=== PATIENT | male | born 1990 | race Caucasian/White ===

== ENCOUNTER 2020-04-12 08:56 | Inpatient (IN) | payer SELFPAY ==
[~2020-04-12] VITALS: Ht 177.8 cm; Wt 78.4 kg
[2020-04-12] VITALS (245 sets, daily range): BP systolic 107–130; BP diastolic 67–92; PULSE 68–92; TEMP 98.7–99.2; O2SAT 64–100
[~2020-04-12 08:56] MED LIST: NO HOME MEDICATIONS
[2020-04-12 09:22] LABS: HEMOGLOBIN 15.2 g/dl (13.5-18.0); MEAN CELL VOLUME 96 fl (80.0-100.0); MEAN CORPUSCULAR HEMOGLOBIN 33 pg (27.0-31.0); MEAN CORPUSCULAR HGB CONC 35 g/dl (33.0-37.0); MEAN PLATELET VOLUME 9.4 fl (7.4-10.4); PLATELET COUNT 215 K/mm3 (130-400); RED BLOOD COUNT 4.57 M/mm3 (4.20-5.60); REDCELL DISTRIBUTION WIDTH-CV 13.5 % (11.5-14.5)
[2020-04-12 09:33] LABS: ALBUMIN 4.9 gm/dL (3.5-5.0); ALKALINE PHOSPHATASE 78 U/L (50-136); ANION GAP 23 mmol/L (7-16); AST,SGOT 175 U/L (15-37); BILIRUBIN,TOTAL 1.6 mg/dL (0.0-1.0); BLOOD UREA NITROGEN 7 mg/dL (9-20); CARBON DIOXIDE 16 mmol/L (22-30); CHLORIDE 95 mmol/L (98-107); GLUCOSE 214 mg/dL (74-106); MAGNESIUM 1.7 mg/dL (1.6-2.3); POTASSIUM 3.5 mmol/L (3.4-5.0); SODIUM 133 mmol/L (137-145); TOTAL PROTEIN 8.1 gm/dL (6.4-8.2)
[2020-04-12 09:36] LABS: ALCOHOL(ethanol),MEDICAL < 10 mg/dL
[2020-04-12 09:39] LABS: ALANINE AMINOTRANSFERASE 69 U/L (4-49)
[2020-04-12 09:49] LABS: PROLACTIN 82.1 ng/mL (3.7-17.9)
[2020-04-12 09:53] LABS: BAND 3 % (0-10); EOSINOPHIL 1 % (0-4); NEUTROPHILS 66 % (42.0-75.2); PLATELET ESTIMATE NORMAL (NORMAL)
[2020-04-12 09:55] LABS: LYMPHOCYTE 25 % (20.0-51.0)
[2020-04-12 09:56] LABS: STOMATOCYTE 1+
[2020-04-12 10:36] LABS: COLLECTION METHOD CLEAN CATCH
[2020-04-12 10:46] LABS: MUCOUS Present /lpf; PH 6 (5-8); SQUAMOUS EPITHELIAL 0-2 /hpf; URINE APPEARANCE Hazy; URINE BACTERIA None Seen /hpf; URINE BILIRUBIN Negative (NEGATIVE); URINE BLOOD Negative (NEGATIVE); URINE COLOR Amber; URINE GLUCOSE Negative (NEGATIVE); URINE KETONE Trace (NEGATIVE); URINE LEUKOCYTE ESTERASE Negative (NEGATIVE); URINE NITRATE Negative (NEGATIVE); URINE PROTEIN(semi-quant) 2+ (NEGATIVE); URINE UROBILINOGEN Negative (NEGATIVE)
[2020-04-12 10:51] LABS: TRICYCLIC ANTIDEPRESS URINE NEGATIVE
[2020-04-13] VITALS (16 sets, daily range): BP systolic 109–134; BP diastolic 65–95; PULSE 61–100; TEMP 97.3–98.8
[2020-04-13 06:15] LABS: BASO # 0.1 (0.0-0.2); BASO % 0.7 % (0.0-2.0); EOS # 0.1 (0.0-0.7); EOS % 2.1 % (0-4.0); GRAN # 4.8 (1.4-6.5); GRAN % 72.6 % (42.2-75.2); HEMATOCRIT 38.5 % (42.0-52.0); LYMPH # 1.2 (1.2-3.4); LYMPH % 17.2 % (20.0-51.0); MEAN CELL VOLUME 98 fl (80.0-100.0); MEAN CORPUSCULAR HEMOGLOBIN 34 pg (27.0-31.0); MEAN CORPUSCULAR HGB CONC 34 g/dl (33.0-37.0); MEAN PLATELET VOLUME 9.8 fl (7.4-10.4); MONO # 0.5 (0.1-0.6); PLATELET COUNT 131 K/mm3 (130-400); RED BLOOD COUNT 3.94 M/mm3 (4.20-5.60); REDCELL DISTRIBUTION WIDTH-CV 13.5 % (11.5-14.5)
[2020-04-13 06:20] LABS: HEMOGLOBIN 13.2 g/dl (13.5-18.0)
[2020-04-13 06:27] LABS: ALBUMIN 4.1 gm/dL (3.5-5.0); BILIRUBIN,TOTAL 1.3 mg/dL (0.0-1.0); CALCIUM 8.8 mg/dL (8.4-10.2); CREATININE, serum 0.59 (0.66-1.25); MAGNESIUM 1.8 mg/dL (1.6-2.3); POTASSIUM 3.2 mmol/L (3.4-5.0); TOTAL PROTEIN 6.9 gm/dL (6.4-8.2)
[2020-04-14] VITALS (7 sets, daily range): BP systolic 125–135; BP diastolic 86–101; PULSE 62–86; TEMP 98.2–99.6
[2020-04-14 05:43] LABS: BASO % 0.6 % (0.0-2.0); EOS # 0.1 (0.0-0.7); GRAN % 73.4 % (42.2-75.2); HEMOGLOBIN 14.3 g/dl (13.5-18.0); LYMPH # 1.1 (1.2-3.4); LYMPH % 16.5 % (20.0-51.0); MEAN CELL VOLUME 97 fl (80.0-100.0); MEAN CORPUSCULAR HEMOGLOBIN 34 pg (27.0-31.0); MEAN CORPUSCULAR HGB CONC 35 g/dl (33.0-37.0); MEAN PLATELET VOLUME 10.1 fl (7.4-10.4); MONO # 0.5 (0.1-0.6); MONO % 6.9 % (1.7-9.3); PLATELET COUNT 123 K/mm3 (130-400); RED BLOOD COUNT 4.24 M/mm3 (4.20-5.60); REDCELL DISTRIBUTION WIDTH-CV 13.3 % (11.5-14.5)
[2020-04-14 05:52] LABS: ALBUMIN 4.3 gm/dL (3.5-5.0); BILIRUBIN,TOTAL 0.7 mg/dL (0.0-1.0); CALCIUM 9.1 mg/dL (8.4-10.2); CREATININE, serum 0.73 (0.66-1.25); MAGNESIUM 1.8 mg/dL (1.6-2.3); POTASSIUM 3.8 mmol/L (3.4-5.0); TOTAL PROTEIN 7.4 gm/dL (6.4-8.2)
[2020-04-14] MEDS ORDERED: NATURE'S BLEND100 M2 PO (11:32)
[2020-04-14] MEDS ORDERED: FOLIC ACID 11 MG/TA1 PO (11:32)
[2020-04-14] MEDS ORDERED: NICODERM C14 MG/PATC TD (11:32)
[2020-04-14] MEDS ORDERED: VALIUM 10MG10 MG/TAB PO (11:34)
== END 2020-04-14 11:45 | disposition left against medical advice (07) | DRG 894 ==
LOC: COL.ER 08:56 → IMCU 12:08 → ICU 13:43 → IMCU 04-14 11:45
PROVIDERS: Nurse Practitioner; Physician Assistant; ADMIT Student in an Organized Health Care Education/Training Program
PROC: HZ2ZZZZ Detoxification Services for Substance Abuse Treatment (ICD-10-PCS; principal; 2020-04-12)
DX: F10.239 Alcohol dependence with withdrawal, unspecified (principal); E87.2 Acidosis; F41.9 Anxiety disorder, unspecified; F17.210 Nicotine dependence, cigarettes, uncomplicated; Y90.0 Blood alcohol level of less than 20 mg/100 ml; R73.9 Hyperglycemia, unspecified; R80.9 Proteinuria, unspecified; R74.0 Nonspecific elevation of levels of transaminase and lactic acid dehydrogenase [LDH]; Z53.21 Procedure and treatment not carried out due to patient leaving prior to being seen by health care provider
CPT/HCPCS: 99222-AI; 99232-AI; 99239; J1650; J2060; J3360; J3411; J7030

== ENCOUNTER 2020-07-11 15:28 | Emergency (ER) | payer OTHER ==
[~2020-07-11] VITALS: Ht 177.8 cm; Wt 90.9 kg
[~2020-07-11 15:28] MED LIST changes: +FOLIC ACID 11 MG/TA1 PO; +NATURE'S BLEND100 M2 PO; +NICODERM C14 MG/PATC TD; +VALIUM 10MG10 MG/TAB PO
[2020-07-11 15:33] VITALS: TEMP 98.8
[2020-07-11 16:12] LABS: BASO % 0.5 % (0.0-2.0); EOS # 0.1 (0.0-0.7); EOS % 1.3 % (0-4.0); GRAN # 5.3 (1.4-6.5); GRAN % 62.6 % (42.2-75.2); HEMATOCRIT 39.8 % (42.0-52.0); HEMOGLOBIN 14.3 g/dl (13.5-18.0); LYMPH # 1.8 (1.2-3.4); LYMPH % 21.5 % (20.0-51.0); MEAN CELL VOLUME 95 fl (80.0-100.0); MEAN CORPUSCULAR HEMOGLOBIN 34 pg (27.0-31.0); MEAN CORPUSCULAR HGB CONC 36 g/dl (33.0-37.0); MEAN PLATELET VOLUME 9.2 fl (7.4-10.4); MONO # 1.2 (0.1-0.6); MONO % 13.6 % (1.7-9.3); PLATELET COUNT 333 K/mm3 (130-400); RED BLOOD COUNT 4.18 M/mm3 (4.20-5.60); REDCELL DISTRIBUTION WIDTH-CV 11.7 % (11.5-14.5)
[2020-07-11 16:48] LABS: ALBUMIN 4.6 gm/dL (3.5-5.0); ALKALINE PHOSPHATASE 66 U/L (50-136); ANION GAP 22 mmol/L (7-16); BILIRUBIN,TOTAL 1.4 mg/dL (0.0-1.0); BLOOD UREA NITROGEN 9 mg/dL (9-20); CALCIUM 9.1 mg/dL (8.4-10.2); CARBON DIOXIDE 23 mmol/L (22-30); CREATININE, serum 0.92 (0.66-1.25); GLUCOSE 168 mg/dL (74-106); LIPASE 164 U/L (23-300); SODIUM 131 mmol/L (137-145); TOTAL PROTEIN 7.8 gm/dL (6.4-8.2)
[2020-07-11 16:54] LABS: AST,SGOT 137 U/L (15-37)
--- NOTE | 2020-07-11 17:05 | NUR ---
MARCELINO responded to ED consult. The patient came in for alcohol detox. The patient states that his last drink was three days ago. He states that he drinks a pint of vodka a day. MARCELINO met with the patient to discuss treatment options. The patient states that he would be interested in going to a detox center. The patient was listed as self pay. The patient reports that he does have insurance and provided SW with is insurance card. MARCELINO provided this information to ED admissions. MARCELINO then contacted Yuki at [facility] in [place]. Yuki reports that they are kind of full right now. MARCELINO then contacted [facility] in [place]. [facility] reports that they do have a male bed available right now and would need to screen the patient over the phone. MARCELINO met with the patient and had him on speaker phone for the screen. The patient confirms that his last drink was three days ago. Heatherisabelle report that since his last drink was three days ago, then they would not be able to take him. She states that he would now need residential/inpatient treatment. She states detox is within 48 hours of their last drink. MARCELINO then discussed inpatient and outpatient treatment. The patient reports that he would prefer outpatient treatment at [facility]. MARCELINO contacted and provided the patient's information to [facility]. The receptionist telephone operator reports that Marek, their coordinator for the drug/alcohol treatment is already out for the day and will not be back until Thursday. The receptionist telephone operator reports that Marek will contact the patient on Thursday. MARCELINO updated the patient on this and provided him with a list of the different outpatient alcohol, AA meetings in [place], and a list of the different inpatient treatment facilities in [place]. MARCELINO contacted and updated the patient's mother, Nubia. MARCELINO updated the patient's RN on the above information. No additional needs at this time.
[2020-07-11 17:07] LABS: ALANINE AMINOTRANSFERASE 72 U/L (4-49)
[2020-07-11 17:32] LABS: CHLORIDE 86 mmol/L (98-107)
[2020-07-11 17:33] LABS: ALCOHOL(ethanol),MEDICAL < 10 mg/dL
[2020-07-11 17:57] LABS: COLLECTION METHOD CLEAN CATCH
[2020-07-11 18:03] LABS: PH 8 (5-8); SQUAMOUS EPITHELIAL None Seen /hpf; URINE APPEARANCE Clear; URINE BACTERIA None Seen /hpf; URINE BILIRUBIN Negative (NEGATIVE); URINE BLOOD Negative (NEGATIVE); URINE COLOR Yellow; URINE GLUCOSE Negative (NEGATIVE); URINE KETONE Negative (NEGATIVE); URINE LEUKOCYTE ESTERASE Negative (NEGATIVE); URINE NITRATE Negative (NEGATIVE); URINE PROTEIN(semi-quant) 2+ (NEGATIVE); URINE RBC 0-2 /hpf; URINE UROBILINOGEN Negative (NEGATIVE)
[2020-07-11] MEDS ORDERED: LIBRIUM 25M25 MG/CAP PO (18:33)
[2020-07-11] MEDS ORDERED: K-TAB20 PO (18:37)
[2020-07-11 18:46] VITALS: BP 106/74
[2020-07-11 20:14] VITALS: PULSE 102
== END 2020-07-11 20:14 | disposition home or self-care (01) ==
LOC: COL.ER 15:28
PROVIDERS: Emergency Medicine
DX: R56.9 Unspecified convulsions (principal); F10.239 Alcohol dependence with withdrawal, unspecified
CPT/HCPCS: J2060; J2405; J3411; J3475; J7030

== ENCOUNTER 2020-08-31 23:54 | Emergency (ER) | payer OTHER ==
[~2020-08-31] VITALS: Ht 177.8 cm; Wt 77.7 kg
[~2020-08-31 23:54] MED LIST changes: +K-TAB20 PO; +LIBRIUM 25M25 MG/CAP PO
[2020-09-01 00:42] LABS: BASO # 0.1 (0.0-0.2); BASO % 1.3 % (0.0-2.0); EOS # 0.1 (0.0-0.7); EOS % 1.6 % (0-4.0); GRAN # 1.5 (1.4-6.5); GRAN % 38.2 % (42.2-75.2); HEMATOCRIT 41.2 % (42.0-52.0); HEMOGLOBIN 14.4 g/dl (13.5-18.0); LYMPH # 1.8 (1.2-3.4); LYMPH % 47.4 % (20.0-51.0); MEAN CELL VOLUME 99 fl (80.0-100.0); MEAN CORPUSCULAR HEMOGLOBIN 35 pg (27.0-31.0); MEAN CORPUSCULAR HGB CONC 35 g/dl (33.0-37.0); MEAN PLATELET VOLUME 8.5 fl (7.4-10.4); MONO # 0.4 (0.1-0.6); MONO % 11.2 % (1.7-9.3); PLATELET COUNT 437 K/mm3 (130-400); RED BLOOD COUNT 4.16 M/mm3 (4.20-5.60); REDCELL DISTRIBUTION WIDTH-CV 13.3 % (11.5-14.5)
[2020-09-01 00:52] LABS: ALBUMIN 4.6 gm/dL (3.5-5.0); BILIRUBIN,TOTAL 0.6 mg/dL (0.0-1.0); CREATININE, serum 0.83 (0.66-1.25); POTASSIUM 3.7 mmol/L (3.4-5.0); TOTAL PROTEIN 7.8 gm/dL (6.4-8.2)
[2020-09-01 02:43] VITALS: BP 122/68; PULSE 86; TEMP 98.2
== END 2020-09-01 02:44 | disposition home or self-care (01) ==
LOC: COL.ER 23:54
PROVIDERS: Physician Assistant
DX: F10.129 Alcohol abuse with intoxication, unspecified (principal); Y90.8 Blood alcohol level of 240 mg/100 ml or more
CPT/HCPCS: C9113; J2405